=== PATIENT | male | born 1985 | race Caucasian/White ===

== ENCOUNTER 2023-05-24 15:02 | Emergency (ER) | payer BC ==
[2023-05-24] MEDS ORDERED: Sodium Chloride 0.9% 10 ML Syringe FLUSH PRN (15:38)
[2023-05-24] MEDS ORDERED: Sodium Chloride 0.9% 2.5 ML Syringe FLUSH PRN (15:38)
[2023-05-24] MEDS ORDERED: Sodium Chloride 0.9% 1,000 ML IV ONE (15:38)
[2023-05-24] MEDS ORDERED: Meclizine 25 MG Tab PO ONE (15:39)
[2023-05-24 16:17] LABS: BASOPHILS PERCENT AUTO 0.5 % (0.0-1.5); EOSINOPHILS ABSOLUTE AUTO 0.1 K/uL (0.0-0.7); EOSINOPHILS PERCENT AUTO 0.7 % (0.0-7.0); HEMATOCRIT 49.3 % (38.0-50.0); HEMOGLOBIN 17.4 g/dL (13.0-17.0); LYMPHOCYTES ABSOLUTE AUTO 1.9 K/uL (0.6-2.4); LYMPHOCYTES PERCENT AUTO 22.8 % (16.0-40.0); MEAN CORPUSCULAR HEMOGLOBIN 31.5 pg (27.0-32.0); MEAN CORPUSCULAR HGB CONC 35.3 g/dL (31.0-37.0); MEAN CORPUSCULAR VOLUME 89.3 fL (80.0-98.0); MONOCYTES ABSOLUTE AUTO 0.8 K/uL (0.0-0.8); MONOCYTES PERCENT AUTO 9.4 % (0.0-15.0); NEUTROPHILS ABSOLUTE AUTO 5.5 K/uL (1.4-5.7); NEUTROPHILS PERCENT AUTO 66.6 % (48.0-80.0); NRBC ABSOLUTE 0 K/uL; PLATELET COUNT,PLT 224 K/uL (150-400); RED BLOOD CELL COUNT 5.52 M/uL (4.50-5.90); WHITE BLOOD CELL COUNT,WBC 8.21 K/uL (4.0-11.0)
[2023-05-24 17:01] LABS: BLOOD UREA NITROGEN,BUN 15 mg/dL (7.0-18.0); CARBON DIOXIDE,CO2 28.4 mmol/L (21.0-32.0); CHLORIDE,CL 100 mmol/L (98-107); CREATININE 0.9 mg/dL (0.8-1.3); EST CRCL DRUG DOSING (CG) 99.44 mL/min; GLUCOSE RANDOM 143 mg/dL (74-106); POTASSIUM,K 3.8 mmol/L (3.5-5.1); SODIUM,NA 137 mmol/L (136-148)
[2023-05-24 17:03] LABS: ESTIMATED GFR 111 mL/min (>60)
[2023-05-24] MEDS ORDERED: Iopamidol 755 MG/ML 500 ML Multipack Bottle IVPUSH STA (17:47)
== END 2023-05-24 19:55 | disposition home or self-care (01) ==
LOC: MW.ED 15:02
DX: R42 Dizziness and giddiness (principal); R51.9 Headache, unspecified; Z86.16 Personal history of COVID-19
CPT/HCPCS: 36415; 70450; 70496; 70498; 80048; 84484; 85025; 93005; 99284; A9270; J3490; J7030; Q9967